=== PATIENT | male | born 1975 | race Hispanic/Latino ===

== ENCOUNTER 2018-01-10 14:10 | Emergency (ER) | payer OTHER ==
[~2018-01-10] VITALS: Ht 180.3 cm; Wt 88.6 kg
[2018-01-10] MEDS ORDERED: PERCOCET 10/31 COMBO PO (14:46)
[2018-01-10] MEDS ORDERED: DELTASONE20 MG PO (14:49)
[2018-01-10] MEDS ORDERED: FLEXERIL PO (14:49)
[2018-01-10 15:04] VITALS: BP 129/92
== END 2018-01-10 15:15 | disposition home or self-care (01) | DRG 552 ==
LOC: ED 14:10
DX: M54.5 Low back pain (principal); F41.9 Anxiety disorder, unspecified; F43.10 Post-traumatic stress disorder, unspecified